=== PATIENT | female | born 1970 | race Hispanic/Latino ===

== ENCOUNTER 2024-01-27 13:26 | Outpatient (CLI) | payer OTHER, MEDICAID ==
[2024-01-27 14:57] LABS: Hematocrit 45.4 % (34.9-44.5)
[2024-01-27 15:42] LABS: Anion Gap 16 mmol/L (10-20); BUN (Urea Nitrogen) 9 mg/dL (9.8-20.1); Calc. Creatinine Clearance 0 mL/min (70-130); Calcium 10.1 mg/dL (7.8-10.44); Carbon Dioxide 24 mmol/L (22-29); Chloride 101 mmol/L (98-107); Estimated GFR 78; Glucose 82 mg/dL (70-105); Potassium 4.4 mmol/L (3.5-5.1); Sodium 137 mmol/L (136-145)
== END 2024-01-27 13:27 | disposition home or self-care (01) ==
LOC: LABBT 13:26
PROVIDERS: ATTEND Otolaryngology Plastic Surgery within the Head & Neck
DX: Z01.818 Encounter for other preprocedural examination (principal)
CPT/HCPCS: 80048; 85014; 93005; 93010

== ENCOUNTER 2024-02-02 07:06 | Day surgery (SDC) | payer OTHER, MEDICAID ==
[2024-01-27 14:15] VITALS: BMI 24.7
[2024-02-02] MEDS ORDERED: Oxymetazoline HCl 0.05% (30 ML BOT) ONE ×2 (09:03→09:21)
[2024-02-02] MEDS ORDERED: Famotidine/PF 20 mg/2ml Vial ONE (09:19)
[2024-02-02 09:21] LABS: Hemoglobin 13.8 g/dL (12.0-16.0)
[2024-02-02] MEDS ORDERED: EPINEPHrine 1 MG/ML VIAL ONE (09:21)
[2024-02-02] MEDS ORDERED: Lidocaine 1% (PF) 30 ML VIAL ONE (09:21)
[2024-02-02] MEDS ORDERED: fentaNYL 50 mcg/mL 1 mL Vial ONE ×3 (09:27→10:48)
[2024-02-02] MEDS ORDERED: PROPOFOL 20 ML ONE (09:27)
[2024-02-02] MEDS ORDERED: Lidocaine 2% PF 5 ML VIAL ONE (09:29)
[2024-02-02] MEDS ORDERED: Midazolam HCl 2 mg/2 ml Vial ONE (09:35)
[2024-02-02] MEDS ORDERED: PHENYLEPHRINE-NS 100 MCG/ML 10 ML SYRINGE ONE (09:58)
[2024-02-02] MEDS ORDERED: Ondansetron PF 4 MG/2 ML Vial ONE (10:06)
[2024-02-02] MEDS ORDERED: Dexamethasone 4 mg/ml Vial ONE (10:06)
[2024-02-02] MEDS ORDERED: diphenhydrAMINE 50 MG/ML VIAL ONE (11:31)
[2024-02-02] MEDS ORDERED: HYDROcodone/Acetaminophen 5/325 mg Tablet ONE (12:20)
== END 2024-02-02 13:25 | disposition home or self-care (01) ==
LOC: SDC 07:06
PROVIDERS: ATTEND Otolaryngology Plastic Surgery within the Head & Neck
PROC: 09TV8ZZ Resection of Left Ethmoid Sinus, Via Natural or Artificial Opening Endoscopic (ICD-10-PCS; principal; 2024-02-02)
PROC: 09TW8ZZ Resection of Right Sphenoid Sinus, Via Natural or Artificial Opening Endoscopic (ICD-10-PCS; 2024-02-02)
PROC: 09TX8ZZ Resection of Left Sphenoid Sinus, Via Natural or Artificial Opening Endoscopic (ICD-10-PCS; 2024-02-02)
PROC: 09TQ8ZZ Resection of Right Maxillary Sinus, Via Natural or Artificial Opening Endoscopic (ICD-10-PCS; 2024-02-02)
PROC: 09TR8ZZ Resection of Left Maxillary Sinus, Via Natural or Artificial Opening Endoscopic (ICD-10-PCS; 2024-02-02)
PROC: 09TS8ZZ Resection of Right Frontal Sinus, Via Natural or Artificial Opening Endoscopic (ICD-10-PCS; 2024-02-02)
PROC: 09TT8ZZ Resection of Left Frontal Sinus, Via Natural or Artificial Opening Endoscopic (ICD-10-PCS; 2024-02-02)
PROC: 09TU8ZZ Resection of Right Ethmoid Sinus, Via Natural or Artificial Opening Endoscopic (ICD-10-PCS; 2024-02-02)
DX: J34.3 Hypertrophy of nasal turbinates (principal); J32.4 Chronic pansinusitis; J33.0 Polyp of nasal cavity; J30.89 Other allergic rhinitis; I25.10 Atherosclerotic heart disease of native coronary artery without angina pectoris; I10 Essential (primary) hypertension; E11.9 Type 2 diabetes mellitus without complications; Z88.0 Allergy status to penicillin; Z79.899 Other long term (current) drug therapy; Z87.19 Personal history of other diseases of the digestive system; Z98.890 Other specified postprocedural states
CPT/HCPCS: 30140; 31253; 31256; 31267; 31287; 61782; 85018; 87070; 87075; 87205; J0171; J1100; J1200; J2001 ×2; J2250; J2405; J2704; J3010; S0028; 88305

== ENCOUNTER 2024-05-19 14:26 | Outpatient (CLI) | payer OTHER, MEDICAID | END 2024-05-19 14:27 | disposition home or self-care (01) | LOC: BICMAMMO 14:26 | PROVIDERS: ATTEND Nurse Practitioner Women's Health | DX: N63.0 Unspecified lump in unspecified breast (principal) | CPT/HCPCS: 76642; 77066; G0279 ==